=== PATIENT | male | born 1995 | race Caucasian/White ===

== ENCOUNTER 2022-12-27 21:58 | Emergency (ER) | payer MEDICAID, SELFPAY ==
[2022-12-27] VITALS (21 sets, daily range): BP systolic 76–120; BP diastolic 41–82; PULSE 42–60; RESP 12–18; TEMP 36.6; O2SAT 97–100
--- NOTE | 2022-12-27 21:30 | DI.CT_ITS ---
Exam(s) CT HEAD WO EXAM: CT HEAD WO CLINICAL HISTORY: seizure. TECHNIQUE: Imaging Protocol: Axial computed tomography images with coronal and sagittal reformatted images were created and reviewed COMPARISON: No exams were available for comparison FINDINGS: Ventricles and Extra axial spaces: Normal in size and morphology for the patient's age. Hemorrhage: None. Cerebral parenchyma: Normal. Midline shift: None. Brainstem/Cerebellum: Normal. Calvarium: Normal. Visualized Paranasal sinuses/Mastoids: Clear. Soft Tissues: Unremarkable. IMPRESSION: No acute intracranial process. RADIATION DOSE DELIVERED: 672.95mGy.cm Total DLP DATA REPOSITORY: All CT scans at this facility are submitted to the National Radiology Data Registry (NRDR) Dose Index Registry (DIR) with the [employer] (A[employer]). RADIATION OPTIMIZATION: All CT scans at this facility use at least one of these dose optimization te chniques: automated exposure control; mA and/or kV adjustment per patient size (includes targeted exa ms where dose is matched to clinical indication); or iterative reconstruction.
--- NOTE | 2022-12-27 21:42 | W.ED.GENAD ---
Discharge Plan Disposition Patient Disposition: Home Condition: Improving Discharge Details Clinical Impression: Seizures ED Provider: Wil Adame Meds and New Rx's Prescriptions: New levetiracetam [Keppra] 500 mg tablet 500 mg PO BID Qty: 60 4RF Discharge Instructions Instructions: Recurrent Seizures in Adults (ED) Discharge Data Discharge Physician: Wil Adame Medical Decision Making MDM: Summary: Patient presents to the emergency department found at [facility] by the police and brought in by the ambulance service. He was having tonic-clonic seizures in the middle of the [facility] and was brought in he is homeless. Patient received Keppra 1000 mg IV today of 500 for he takes Keppra for seizure disorder but he states he has not been taking it for 3 weeks for he has not had the money to pay the doctor and they kicked him out of the practice. Patient is homeless. Labs were done as well as a CT of the head which was are all negative the only pertinent findings his heart rate has been in the low 50s but he states that this is his normal blood pressure remains normal and he is has a very low BMI. Data Review Analysis All the data on this patient was reviewed by me including laboratory and imaging studies as well as bedside studies performed by me Independent review of Studies Imaging CT scan of the head was obtained which was negative Lab: Labs unremarkable including a drug screen Risk Stratification: Patient who has seizure disorder due to lack of his antiseizure medication I will prescribe the seizure meds and social science teacher evaluate him for his homelessness and will be discharged home Differential Diagnosis: 1. Seizure disorder 2. 3. 4. 5. Consultants: Shared disposition: Patient understands disposition and will do accordingly Impression: Medical Records Medical records reviewed: Yes I reviewed the patient's medical records. Lab Data Lab results reviewed: Yes I reviewed the patient's lab results. ECG Data Attestation: I personally reviewed and interpreted this ECG (s) as follows: Prior ECG tracings: not available for review Interpretation: Sinus bradycardia heart rate [address]-T changes HPI General Date/Time Provider Initiated Documentation: 12/28/22 07:03. HPI Narrative: Patient presents to the emergency department by by ambulance after he was found in the streets of [facility] by the police actively seizing. Patient states that he has a seizure disorder. 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 He states he has not taken it in 3 weeks. Related Data Home Medications Medication Instructions Recorded Confirmed levetiracetam 500 mg tablet 500 mg PO BID #60 tabs 12/28/22 (Keppra) Previous Rx's Medication Instructions Recorded levetiracetam 500 mg tablet 500 mg PO BID #60 tabs 12/28/22 (Keppra) Allergies Allergy/AdvReac Type Severity Reaction Status Date / Time acetaminophen [From Vicodin] Allergy Intermediate Psychosis Unverified 12/27/22 21:52 amoxicillin Allergy Intermediate Diarrhea Unverified 12/27/22 21:52 hydrocodone [From Vicodin] Allergy Intermediate Psychosis Unverified 12/27/22 21:52 morphine Allergy Intermediate Hives Unverified 12/27/22 21:52 omalizumab [From Xolair] Allergy Intermediate Psychosis Unverified 12/27/22 21:52 Review of Systems Narrative: Review of Systems: Constitutional: No fevers, chills, sweats Eye: No recent visual problems ENT: No ear pain, nasal congestion, sore throat Respiratory: No shortness of breath, cough Cardiovascular: No Chest pain, palpitations, syncope Gastrointestinal: No nausea, vomiting, diarrhea Genitourinary: No hematuria Melchor/Lymph: Negative for bruising tendency, swollen lymph glands Endocrine: Negative for excessive thirst, excessive hunger Musculoskeletal: No back pain, neck pain, joint pain, muscle pain, decreased range of motion Integumentary: No rash, pruritus, abrasions Neurologic: Alert & oriented X 4 Psychiatric: No anxiety, depression PFSH All Active Problems (Updated 12/28/22 @ 07:26 by Wil Adame MD) Seizures (Acute) Social History Smoking/Tobacco Use Status: Current every day Smoking risk assessment performed?: Yes Alcohol Intake: never Substance use type: does not use Exam Narrative Exam Narrative: Exam; vitals signs as reported above normal Constitutional; In no acute distress, afebrile General: cooperative, healthy appearing, comfortable and no acute distress HEENT: Head: normal to inspection, no palpable skull fracture and normocephalic atraumatic Eyes: : appearance normal, both eyes and all related structures EOM intact bilaterally Pupils: PERRL : conjunctiva normal Direct ophthalmoscopy: normal light reflex, normal conjunctiva, normal visual acuity Ears: Normal TM, normal external canal Nose: normal no rhinorreha Neck no JVD, supple non tender Neck: normal visual inspection, full ROM and no lymphadenopathy Chest: normal inspection of the chest Respiratory : normal respiratory effort and able to speak in complete sentences no wheezing no rales Cardio Rate: regular rate, rhythm: regular rhythm normal heart sounds S1 and S2 no murmurs, gallops, or rubs GI : normal to inspection, normal bowel sounds, soft, non tender, non distended, no organomegaly Back/Spine/ no CVA tenderness Thoracic/Lumbar Spine: no tenderness or deformities Skin no rashes or lesions Neuro: patient alert oriented x 4 and no meningeal signs, Cranial Nerves: CN's II-XI intact bilaterally, Cognition: normal cognition, Speech: speech normal, Gait: normal gait, Depp tendon reflexes normal 2+ muscle strength 5/5 bilaterally Extremities, no edema, full range of motion, normal strength
--- NOTE | 2022-12-27 21:45 | RT.EKG_ITS ---
APPROVED REPORT Exam: Resting ECG Reason for Exam: seizure Patient Location: E HR:42 bpm ECG Measurements Heart Rate 42 AXIS HI 182 P 57 QRSd 87 QRS 49 QT 438 T 35 QTc 368 Conclusion Sinus bradycardia...rate< 60 ST elev, probable normal early repol pattern...ST elevation, age<55
[2022-12-27] MEDS: levETIRAcetam 1,000 MG in Normal Saline 100 ML 400 MG IVPB (21:50)
[2022-12-27] MEDS: Normal Saline 1,000 ML 1000 ML IV (21:50)
[2022-12-27 21:58] LABS: Abs Immature Grans 0.06 10^3/uL (0.0-0.06); Absolute Basophil Count 0.07 10^3/uL (0.0-0.2); Absolute Eosinophil Count 0.38 10^3/uL (0.0-0.7); Absolute Monocyte Count 0.76 10^3/uL (0.1-0.8); Absolute Neutrophil Count 4.65 10^3/uL (1.2-6.7); Basophils % 0.8; Eosinophils % 4.3; HCT 39.7 % (40.0-50.0); HGB 13.1 g/dL (13.5-17.5); Immature Grans % 0.7; Lymphocytes % 33.6; MCH 28.8 pg (27.0-33.0); MCV 87 fL (80-95); MPV 8.6 fL (8.0-11.0); Monocytes % 8.5; Neutrophils % 52.1; Platelet Count 301 10^3/uL (130-400); RBC 4.55 10^6/uL (4.36-5.78); RDW-SD 41.5 fL; WBC 8.92 10^3/uL (4.4-10.8)
[2022-12-27 22:17] LABS: ALT 21 U/L (16-63); AST 16 U/L (15-37); Albumin 4.3 g/dL (3.4-5.0); Alkaline Phosphatase 74 U/L (46-116); Anion Gap 7.9 mmol/L (3-11); BUN 19 mg/dL (7-18); Bilirubin, Total 0.3 mg/dL (0.2-1.0); CO2 30.1 mmol/L (21.0-32.0); CREATININE 0.9 mg/dL (0.70-1.30); Calcium 9.2 mg/dL (8.5-10.1); Chloride 101 mmol/L (98-107); ETHANOL BLOOD < 3.0 mg/dL (<10); Estimated GFR 121.55 (mL/min/1.73m2); Glucose 105 mg/dL (74-106); Potassium 3.9 mmol/L (3.5-5.1); Sodium 139 mmol/L (136-145); Total Protein 8.2 g/dL (6.4-8.2)
[2022-12-27] MEDS: Ketorolac 15 MG/ML VIAL (22:50)
--- NOTE | 2022-12-27 22:51 | DI.VRAD_ITS ---
PROCEDURE INFORMATION: Exam: CT Head Without Contrast Exam date and time: 12/27/2022 10:23 PM Age: 27 years old Clinical indication: Other: Seizure TECHNIQUE: Imaging protocol: Computed tomography of the head without contrast. Radiation optimization: All CT scans at this facility use at least one of these dose optimization techniques: automated exposure control; mA and/or kV adjustment per patient size (includes targeted exams where dose is matched to clinical indication); or iterative reconstruction. COMPARISON: No relevant prior studies available. FINDINGS: Brain: Normal volume for age. No acute intracranial hemorrhage. Blackburn-white matter differentiation is grossly preserved. No edema. No midline shift or herniation. Cerebral ventricles: No ventriculomegaly. Paranasal sinuses: Imaged paranasal sinuses appropriately aerated without air-fluid levels. Mastoid air cells: No mastoid effusion. Bones/joints: Unremarkable. No acute osseous finding. Soft tissues: No focal soft tissue abnormality. IMPRESSION: No acute intracranial finding. Dictated and Authenticated by: Gilberto Ahuja MD. Ordering:ROSALINA De La Torre MD
[2022-12-27 22:55] LABS: *AMPHETAMINES SCREEN URINE Negative (Negative); *BARBITURATES SCREEN URINE Negative (Negative); *BENZODIAZEPINES SCREEN URINE Negative (Negative); Cannabinoids THC Negative (Negative); Cocaine Screen,Urine Negative (Negative); METHADONE URINE SCREEN Negative (Negative); OPIATES URINE SCREEN Negative (Negative)
[2022-12-27 22:57] LABS: Tricyclic Antidepressants Negative (Negative)
[2022-12-28] VITALS (49 sets, daily range): BP systolic 64–119; BP diastolic 27–77; PULSE 33–71; RESP 11–26; O2SAT 98–100
--- NOTE | 2022-12-28 06:43 | NUR.NOTE ---
2240 requested toradol for a migraine that was starting. Nursing Note:
[2022-12-28] MEDS: levETIRAcetam 250 MG TAB 500 MG PO (07:32)
--- NOTE | 2022-12-28 07:39 | W.EDPROG ---
Date of service: 12/28/22 Time of Service: 07:39 Medical Decision Making pt stable, signed out to me pending care management eval. Pt has no complaints now and has stable vitals, will be discharged and will meet with care management this morning when they arrive. Discharge Plan Disposition Patient Disposition: Home Condition: Improving Discharge Details Clinical Impression: Seizures ED Provider: Ronny Barrios Home Meds and New Rx's Prescriptions: New levetiracetam [Keppra] 500 mg tablet 500 mg PO BID Qty: 60 4RF Discharge Instructions Instructions: Recurrent Seizures in Adults (ED) Discharge Data Discharge Physician: Wil Adame
== END 2022-12-28 08:54 | disposition home or self-care (01) ==
PROVIDERS: Emergency Medicine Emergency Medical Services; Emergency Provider Emergency Medicine
DX: G40.409 Other generalized epilepsy and epileptic syndromes, not intractable, without status epilepticus (principal); R00.1 Bradycardia, unspecified; T42.6X6A Underdosing of other antiepileptic and sedative-hypnotic drugs, initial encounter; Z91.141 Patient's other noncompliance with medication regimen due to financial hardship; F17.210 Nicotine dependence, cigarettes, uncomplicated; Z59.00 Homelessness unspecified
CPT/HCPCS: 80053; 80307; 93005; 96361; 96365; 96375; 99284; 70450; 80320; 85025; 93010; 99285; J1885; J1953